=== PATIENT | male | born 1990 | race African-American/Black ===

== ENCOUNTER 2020-03-23 16:29 | Emergency (ER) | payer SELFPAY ==
[~2020-03-23] VITALS: Ht 172.7 cm; Wt 82.0 kg
[2020-03-23] MEDS ORDERED: AZITHROMYCIN 500 MG TABLET PO ONE (17:45)
[2020-03-23] MEDS ORDERED: LIDOCAINE HCL 1% 20ML VIAL (Pyxis) INJ INFIL ONE (17:45)
[2020-03-23] MEDS ORDERED: CEFTRIAXONE SODIUM 250 MG/VIAL IM ONE (17:45)
[2020-03-23 18:31] LABS: CLARITY URINE CLEAR (CLEAR); COLOR URINE DARK YELLOW (YELLOW); KETONES URINE TRACE (NEGATIVE); LEUKOCYTE ESTERASE URINE 2+ (NEGATIVE); NITRITE URINE NEGATIVE (NEGATIVE); OCCULT BLOOD URINE NEGATIVE (NEGATIVE); PH URINE 7.5 (4.5-8.0); PROTEIN URINE TRACE (NEGATIVE); SPECIFIC GRAVITY URINE 1.034 (1.005-1.030)
[2020-03-23 19:19] VITALS: BP 137/102
[2020-03-27 04:10] LABS: NEISSERIA GONORRHOEAE NAA Positive (Negative)
== END 2020-03-23 19:21 | disposition home or self-care (01) ==
LOC: ER 16:29
DX: Z20.2 Contact with and (suspected) exposure to infections with a predominantly sexual mode of transmission (principal)
CPT/HCPCS: 81003; 87086; 87491; 87591; 96372; 99283; J0696; J3490